=== PATIENT | female | born 1965 | race American Indian/Alaskan Native ===

== ENCOUNTER 2017-06-30 10:30 | Outpatient (CLI) | payer OTHER | END 2017-06-30 10:31 | disposition home or self-care (01) | LOC: VAS 10:30 | PROVIDERS: ATTEND Family Medicine Adult Medicine | DX: M79.605 Pain in left leg (principal); M79.89 Other specified soft tissue disorders ==

== ENCOUNTER 2020-07-23 00:37 | Emergency (ER) | payer OTHER ==
[2020-07-23 01:22] VITALS: BP 132/88
--- NOTE | 2020-07-23 02:00 | Emergency Department Report ---
ED Headache HPI - General Chief Complaint: Headache Stated Complaint: HBP; LEFT HAND TINGLING Time Seen by Provider: 07/23/20 01:34 Source: patient - History of Present Illness Initial Comments: This 55-year-old [place] female with a past medical history of hypertension presents emerged department worried about her blood pressure she states at home it was in the 180s of the 110s as she grew worried that her blood pressure medication is not working. She took another dose of her triamterene and then began to have a little tingling sensation to her hands okay to emerge department to have a blood pressure check to see what was going on a while here emerge department her symptoms totally had resolved. She reports no presyncope, no loss of consciousness, no fever, chills, sweats, no chest pain, no palpitations. States that she feels well overall and an excellent this present time requesting to be discharged home. States she will return to emergency department should she feel that her condition is worsening. Timing/Duration: 4-6 hours Quality: achy Head Injury Location: global Recent Head Trauma: occasional headaches Associated Symptoms: denies: facial pain, fever/chills, nausea/vomiting, nasal congestion, nasal drainage, sinus infection, stiff neck, vision changes Allergies/Adverse Reactions: Allergies amoxicillin Allergy (Verified 04/10/18 16:11) Hives avocado Allergy (Verified 04/10/18 16:11) Hives banana Allergy (Verified 04/10/18 16:11) Hives kiwi Allergy (Verified 04/10/18 16:11) Hives lisinopril Allergy (Verified 04/10/18 16:11) Swelling orange Allergy (Verified 04/10/18 16:11) Hives Latex, Natural Rubber Adverse Reaction (Verified 04/10/18 16:11) Anaphylaxis peanut Adverse Reaction (Verified 04/10/18 16:11) Anaphylaxis ED Review of Systems ROS: Stated complaint: HBP; LEFT HAND TINGLING Other details as noted in HPI Comment: All other systems reviewed and negative ED Past Medical Hx - Past Medical History Previous Medical History?: Yes Hx Hypertension: Yes Hx Diabetes: Yes - Surgical History Past Surgical History?: Yes Additional Surgical History: tubal ligation, hysterectomy - Social History Smoking Status: Never Smoker ED Physical Exam - General Limitations: No Limitations General appearance: alert, in no apparent distress - Head Head exam: Present: atraumatic, normocephalic - Eye Eye exam: Present: normal appearance, PERRL, EOMI. Absent: nystagmus Pupils: Present: other (Negative funduscopic examination) - ENT ENT exam: Present: normal exam, normal orophraynx, mucous membranes moist - Neck Neck exam: Present: normal inspection - Respiratory Respiratory exam: Present: normal lung sounds bilaterally. Absent: respiratory distress - Cardiovascular Cardiovascular Exam: Present: regular rate, normal rhythm. Absent: systolic murmur, diastolic murmur, rubs, gallop - GI/Abdominal GI/Abdominal exam: Present: soft, normal bowel sounds - Extremities Exam Extremities exam: Present: normal inspection - Back Exam Back exam: Present: normal inspection. Absent: muscle spasm, paraspinal tenderness, vertebral tenderness - Neurological Exam Neurological exam: Present: alert, oriented X3, CN II-XII intact, normal gait, reflexes normal. Absent: abnormal gait, motor sensory deficit - Psychiatric Psychiatric exam: Present: normal affect, normal mood. Absent: anxious, flat affect - Skin Skin exam: Present: warm, dry, intact, normal color. Absent: rash ED Course Vital Signs 07/23/20 01:16 Temperature 97.8 F Pulse Rate 77 Respiratory 18 Rate Blood Pressure 132/88 O2 Sat by Pulse 99 Oximetry ED Medical Decision Making - Medical Decision Making 55-year-old female presents emerge department for hypertension was found to have her blood pressure normal at 130s over the 80s. With no accompanying symptoms. She takes triamterene HCTZ and reports he takes medication as prescribed but had to take a dose tonight due to increase in her and her blood pressure states that she feels normal at no point in time did she develop any other symptoms with exception of a vague tingling to her feet fingers which she thought was more secondary to the anxiety of her having hypertension. I did offer CT scan of the head however she she declined stating that she felt it was unnecessary due to her her symptoms or lack thereof and states she will return to the emergency department should she feel that it is necessary Critical care attestation.: If time is entered above; I have spent that time in minutes in the direct care of this critically ill patient, excluding procedure time. ED Disposition Clinical Impression: Cephalgia Disposition: DC- TO HOME OR SELFCARE Is pt being admited?: No Does the pt Need Aspirin: No Condition: Stable Additional Instructions: Blood pressure is normal range. Please follow-up to the hospital should your blood pressure increases again at home or becomes present with symptoms. We do understand that you have your operative no CT scan at this present time but if your symptoms do reemerge you can return to obtain the CT. Referrals: PRIMARY CARE, [Primary Care Provider] - 3-5 Days - Level of Consciousness 1a. Level of Consciousness: alert/keenly responsive - LOC Questions 1b. LOC Questions: answers both correctly - LOC Command 1c. LOC Commands: performs tasks correctly - Best Gaze 2. Best Gaze: normal - Visual 3. Visual: no visual loss - Facial Palsy 4. Facial Palsy: normal symmetrical movement - Motor Arm 5a. Motor Arm Left: no drift 5b. Motor Arm Right: no drift - Motor Leg 6a. Motor Leg Left: no drift 6b. Motor Leg Right: no movement - Limb Ataxia 7. Limb Ataxia: absent - Sensory 8. Sensory: normal - Best Language 9. Best Language: no aphasia - Dysarthria 10. Dysarthria: normal - Extinction and Inattention 11. Extinction/Inattention: no abnormality - Scoring Total Score: 4 Stroke Severity: Minor Stroke
== END 2020-07-23 02:10 | disposition home or self-care (01) ==
LOC: ED 00:37
DX: R51.9 Headache, unspecified (principal); I10 Essential (primary) hypertension; E11.9 Type 2 diabetes mellitus without complications; Z79.899 Other long term (current) drug therapy; Z90.710 Acquired absence of both cervix and uterus; Z98.51 Tubal ligation status
CPT/HCPCS: 99281